=== PATIENT | female | born 1940 | race Hispanic/Latino ===

== ENCOUNTER 2017-02-24 10:42 | Emergency (ER) | payer MEDICARE, BC ==
[2017-02-24] MEDS ORDERED: Ondansetron HCl/PF 4 MG/2 ML Vial ONE (11:23)
[2017-02-24 11:27] LABS: #Basophils 0.1 thou/uL (0.0-0.2); #Eosinphils 0.1 thou/uL (0.0-0.7); #Lymphocytes 1.9 thou/uL (1.20-3.40); #Monocytes 0.5 thou/uL (0.11-0.59); #Neutrophils 5.9 thou/uL (1.40-6.50); %Basophils 0.6 % (0.0-1.0); %Eosinophils 0.7 % (0.0-10.0); %Lymphocytes 22.7 % (21.0-51.0); %Monocytes 5.8 % (0.0-10.0); Mean Platelet Volume 7.3 fL (7.4-10.4); Red Blood Cell (RBC) Count 4.45 mill/uL (4.20-5.40); White Blood Cell (WBC) Count 8.4 thou/uL (4.8-10.8)
[2017-02-24 11:53] LABS: ALT (SGPT) 20 U/L (8-55); AST (SGOT) 16 U/L (5-34); Alkaline Phosphatase 88 U/L (40-150); Anion Gap 13 mmol/L (10-20); BUN (Urea Nitrogen) 20 mg/dL (9.8-20.1); Bilirubin, Total 0.5 mg/dL (0.2-1.2); Calc. Creatinine Clearance 0 mL/min (70-130); Calcium 9.1 mg/dL (7.8-10.44); Carbon Dioxide 24 mmol/L (23-31); Chloride 102 mmol/L (98-107); Estimated GFR-MDRD 60; Globulin 3.7 g/dL (2.4-3.5); Lipase 14 U/L (8-78); Protein, Total 7.7 g/dL (6.0-8.3)
== END 2017-02-24 14:10 | disposition home or self-care (01) ==
LOC: ERS 10:42
DX: K52.9 Noninfective gastroenteritis and colitis, unspecified (principal); E11.9 Type 2 diabetes mellitus without complications; E78.5 Hyperlipidemia, unspecified; I10 Essential (primary) hypertension; J45.909 Unspecified asthma, uncomplicated; Z79.84 Long term (current) use of oral hypoglycemic drugs; Z79.899 Other long term (current) drug therapy
CPT/HCPCS: 36416; 80053; 83690; 85025; 96361; 96372; 96374; J2405

== ENCOUNTER 2017-06-19 13:52 | Outpatient (CLI) | payer MEDICARE, BC ==
--- NOTE | 2017-06-19 17:29 | RAD ---
TWO VIEWS CHEST: 06/19/17 PROVIDED CLINICAL HISTORY: Wheezing. FINDINGS: Comparison is made with the study dated 05/12/15. The cardiac and mediastinal silhouette is within normal limits. There is poor definition to the left posterior costophrenic angle with suggestion of left basilar opacity on the frontal view, suspicious for pneumonia. Lungs appear otherwise clear. No definite pleural fluid or pneumothorax apparent. Dege nerative changes are seen in involving the thoracic spine. Vascular calcification involves the aortic arch. IMPRESSION: Findings suspicious for left basilar air space disease. Correlate with concerns for pneumonia. Follow up recommended. POS: C[facility]
== END 2017-06-19 13:53 | disposition home or self-care (01) ==
LOC: RAD-FRANK 13:52
PROVIDERS: ATTEND Nurse Practitioner Family
DX: J45.901 Unspecified asthma with (acute) exacerbation (principal); R06.2 Wheezing; J06.9 Acute upper respiratory infection, unspecified
CPT/HCPCS: 71046

== ENCOUNTER 2017-07-01 08:13 | Outpatient (CLI) | payer MEDICARE, BC ==
--- NOTE | 2017-07-01 09:22 | RAD ---
TWO VIEWS CHEST: HISTORY: Left lower lobe pneumonia. FINDINGS: P)A and lateral views of the chest are obtained on 07/01/17. Comparison is made to previous exam from 06/19/17. Two views chest demonstrate the lungs to be well aerated. Area of airspace opacity in the left lower lobe has significantly improved in aeration and essentially completely resolved. No evidence of res idual pneumonia or masses seen. No other significant abnormalities noted. IMPRESSION: Improved aeration and resolved left lower lobe pneumonia. POS: C
== END 2017-07-01 08:14 | disposition home or self-care (01) ==
LOC: RAD-FRANK 08:13
PROVIDERS: ATTEND Nurse Practitioner Family
DX: J16.8 Pneumonia due to other specified infectious organisms (principal)
CPT/HCPCS: 71046

== ENCOUNTER 2017-09-01 10:38 | Emergency (ER) | payer MEDICARE, BC ==
[2017-09-01 11:04] LABS: #Basophils 0.1 thou/uL (0.0-0.2); #Eosinphils 0.2 thou/uL (0.0-0.7); #Lymphocytes 2.1 thou/uL (1.20-3.40); #Monocytes 0.4 thou/uL (0.11-0.59); #Neutrophils 2.9 thou/uL (1.40-6.50); %Lymphocytes 37.7 % (21.0-51.0); %Monocytes 6.7 % (0.0-10.0); %Neutrophils 51.6 % (42.0-75.0); Hemoglobin 14.3 g/dL (12.0-16.0); Mean Corpuscular HGB CONC 35.1 g/dL (32.0-36.0); Mean Corpuscular Volume 93.8 fl (81.0-99.0); Mean Platelet Volume 7.3 fL (7.4-10.4); Platelet Count 190 thou/uL (130-400); RBC Distribution Width 11.6 % (11.5-14.5); Red Blood Cell (RBC) Count 4.34 mill/uL (4.20-5.40); White Blood Cell (WBC) Count 5.5 thou/uL (4.8-10.8)
[2017-09-01 11:29] LABS: ALT (SGPT) 9 U/L (8-55); AST (SGOT) 12 U/L (5-34); Albumin 4.3 g/dL (3.4-4.8); Alkaline Phosphatase 84 U/L (40-150); Anion Gap 14 mmol/L (10-20); BUN (Urea Nitrogen) 37 mg/dL (9.8-20.1); Bilirubin, Total 0.6 mg/dL (0.2-1.2); Calc. Creatinine Clearance 0 mL/min (70-130); Calcium 9.7 mg/dL (7.8-10.44); Carbon Dioxide 24 mmol/L (23-31); Chloride 106 mmol/L (98-107); Estimated GFR-MDRD 45; Globulin 3.2 g/dL (2.4-3.5); Glucose 134 mg/dL (83-110); Potassium 3.6 mmol/L (3.5-5.1); Protein, Total 7.5 g/dL (6.0-8.3); Sodium 140 mmol/L (136-145)
== END 2017-09-01 13:10 | disposition home or self-care (01) ==
LOC: ERS 10:38
DX: M79.2 Neuralgia and neuritis, unspecified (principal); E11.9 Type 2 diabetes mellitus without complications; E78.5 Hyperlipidemia, unspecified; I10 Essential (primary) hypertension; J45.909 Unspecified asthma, uncomplicated; M06.9 Rheumatoid arthritis, unspecified; Z79.84 Long term (current) use of oral hypoglycemic drugs; Z79.899 Other long term (current) drug therapy
CPT/HCPCS: 36415; 80053; 85025; 99284

== ENCOUNTER 2017-10-11 18:47 | Emergency (ER) | payer MEDICARE, BC ==
--- NOTE | 2017-10-11 19:51 | RAD ---
THREE VIEWS RIGHT FOOT: 10/11/17 HISTORY: Injury to foot one day ago. Patient now has right foot pain. FINDINGS: The Lisfranc joint is normally aligned. The toes are held in flexion, but no definite fracture is see n. There is no evidence of a dislocation. A plantar calcaneal enthesophyte is seen. There is mild sub cutaneous soft tissue swelling seen at the dorsal aspect of the mid foot. IMPRESSION: Mild subcutaneous soft tissue swelling dorsal aspect of the foot, but no acute osseous abnormality is seen. POS: TELMA
[2017-10-11] MEDS ORDERED: Ketorolac Tromethamine 30 MG/ML VIAL ONE (20:19)
== END 2017-10-11 20:35 | disposition home or self-care (01) ==
LOC: ERS 18:47
DX: S93.401A Sprain of unspecified ligament of right ankle, initial encounter (principal); E11.9 Type 2 diabetes mellitus without complications; E78.5 Hyperlipidemia, unspecified; I10 Essential (primary) hypertension; J45.909 Unspecified asthma, uncomplicated; M06.9 Rheumatoid arthritis, unspecified; Z79.899 Other long term (current) drug therapy; Z79.84 Long term (current) use of oral hypoglycemic drugs; W18.30XA Fall on same level, unspecified, initial encounter
CPT/HCPCS: 96372; J1885

== ENCOUNTER 2017-12-14 18:53 | Observation (INO) | payer MEDICARE, BC ==
[2017-12-14] MEDS ORDERED: Nitroglycerin 0.4 MG TAB (25 Tab Bottle) ONE (19:43)
--- NOTE | 2017-12-14 19:49 | RAD ---
RADIOGRAPH CHEST 1 VIEW: 12/14/17 HISTORY: 77-year-old female with acute chest pain. FINDINGS: There are no air space densities, pulmonary edema, pneumothorax, or cardiomegaly. The lateral costop hrenic angles are sharp. IMPRESSION: No acute cardiopulmonary findings. adair [] POS: PENNY
[2017-12-14] MEDS ORDERED: Acetaminophen 500 MG TAB ONE (20:01)
[2017-12-14 20:05] LABS: #Basophils 0.1 thou/uL (0.0-0.2); #Eosinphils 0.1 thou/uL (0.0-0.7); #Lymphocytes 2.6 thou/uL (1.20-3.40); #Monocytes 0.5 thou/uL (0.11-0.59); #Neutrophils 6.4 thou/uL (1.40-6.50); %Eosinophils 1.2 % (0.0-10.0); %Lymphocytes 26.7 % (21.0-51.0); %Neutrophils 66.1 % (42.0-75.0); Hemoglobin 14.2 g/dL (12.0-16.0); Mean Corpuscular HGB CONC 33.8 g/dL (32.0-36.0); Mean Corpuscular Hemoglobin 32.5 pg (27.0-31.0); Mean Corpuscular Volume 96.2 fL (78.0-98.0); Mean Platelet Volume 7.3 fL (7.4-10.4); Platelet Count 217 thou/uL (130-400); RBC Distribution Width 11.9 % (11.5-14.5); Red Blood Cell (RBC) Count 4.36 mill/uL (4.20-5.40); White Blood Cell (WBC) Count 9.6 thou/uL (4.8-10.8)
[2017-12-14 20:27] LABS: ALT (SGPT) 27 U/L (8-55); AST (SGOT) 15 U/L (5-34); Albumin 4.2 g/dL (3.4-4.8); Alkaline Phosphatase 96 U/L (40-150); Anion Gap 15 mmol/L (10-20); BUN (Urea Nitrogen) 39 mg/dL (9.8-20.1); Bilirubin, Total 0.4 mg/dL (0.2-1.2); Calc. Creatinine Clearance 0 mL/min (70-130); Calcium 9.5 mg/dL (7.8-10.44); Carbon Dioxide 23 mmol/L (23-31); Chloride 104 mmol/L (98-107); Estimated GFR-MDRD 46; Globulin 3.3 g/dL (2.4-3.5); Glucose 136 mg/dL (83-110); Potassium 3.7 mmol/L (3.5-5.1); Protein, Total 7.5 g/dL (6.0-8.3); Sodium 138 mmol/L (136-145)
[2017-12-14 20:29] LABS: CKMB 6.1 ng/mL (0-6.6); Troponin I Less than 0.010 ng/mL (< 0.028)
[2017-12-14] MEDS ORDERED: Acetaminophen 325 MG TAB PO PRN (23:04)
[2017-12-14] MEDS ORDERED: Ondansetron HCl/PF 4 MG/2 ML Vial IVP PRN (23:04)
[2017-12-14 23:33] LABS: Troponin I Less than 0.010 ng/mL (< 0.028)
[2017-12-14 23:58] VITALS: BMI 28.1
--- NOTE | 2017-12-15 00:37 | HP ---
PRIMARY CARE PHYSICIAN: JAYA Gtz CODE STATUS: FULL CODE. TIME OF EVALUATION: 10:20 p.m. CHIEF COMPLAINT: Chest pain. HISTORY OF PRESENT ILLNESS: This is a 77-year-old female patient with past medical history of marion ry artery disease, status post stent placement; diabetes; hyperlipidemia; hypertension; asthma came t o the hospital after having chest pain that started around 7:00 p.m. when she was sitting with no tre ar triggers, no alleviating factors. The pain was reported as moderate, radiating to the left arm. REVIEW OF SYSTEMS: Constitutional: No fever, chills, or generalized weakness. Respiratory: No cou gh, sputum production, shortness of breath. Cardiovascular: The patient has chest pain as described in HPI. No palpitations. Gastrointestinal: No nausea. No vomiting, diarrhea, or abdominal pain. MANAGER OF HUMAN RESOURCES: No dizziness, headache, or feeling lightheaded. Genitourinary: No burning on urination. Ext remities: No leg swelling. All other systems were reviewed and negative except for the findings men tioned above. PAST MEDICAL HISTORY: Mentioned in the HPI. PAST SURGICAL HISTORY: Appendectomy, cholecystectomy, orthopedic surgery, bilateral knee replacement . PSYCHIATRIC HISTORY: No history of suicidal ideation. No history of suicidal attempts. No psych hi story. SOCIAL HISTORY: Lives at home alone. The patient drinks socially. No drugs. No smoking history. FAMILY HISTORY: Mother had heart problems and diabetes. Father had hypertension. KNOWN ALLERGIES: IODINE. REPORTED MEDICATIONS: Amlodipine, metformin, pravastatin, lisinopril, hydrochlorothiazide, pantopraz ole, Advair, albuterol. PHYSICAL EXAMINATION: VITAL SIGNS: On presentation, blood pressure 128/70 with heart rate 88, respiratory rate 18, tempera ture 98.3, pain 6, oxygen saturation 94% on room air. GENERAL APPEARANCE: The patient is alert, oriented, not in acute distress. HEENT: Eyes, normal conjunctivae. Moist oral mucosa. Anicteric. NECK: No JVD. RESPIRATORY: Bilateral air entry. No rales, no wheezing. Symmetric expansion. CARDIOVASCULAR: Normal rate, regular rhythm. No murmurs or gallop. No edema. ABDOMEN: Soft. Normal bowel sounds. MUSCULOSKELETAL: Baseline range of motion and strength. No tenderness. SKIN: Warm and intact. No pallor, no rash, no redness. Peripheral pulses are present. Capillary r efill seems to be intact. NEUROLOGIC: Baseline sensorium. No evidence of any new focal weakness. Baseline speech. Cranial n erves seems to be intact. PSYCHIATRIC: The patient is in good mood. No anxiety. Oriented. Optimal judgment. IMAGING: EKG was reviewed. The patient has normal sinus rhythm at a rate of 83, WA 192, QRS 100, QT corrected 462. This was discussed with the performing physician in ER. Chest x-ray was done. The patient had no acute cardiopulmonary findings. LABORATORY DATA: Labs were reviewed. The patient has a white count of 9.6, hemoglobin 14.2, MCV 96, platelet count 217. Chemistry: Sodium 138, potassium 3.7, chloride 104, carbon dioxide 23, anion g ap 15, BUN 39, creatinine 1.15. The previous creatinine in record was 0.99. GFR 46, glucose 136, ca lcium 9.5. LFTs were normal. Troponins were negative x2. ASSESSMENT AND PLAN: The patient will be placed in the hospital with following medical problems. 1. Chest pain, rule out acute coronary syndrome. Two troponins are negative and EKG unremarkable. We will monitor on tele overnight. If everything is negative, in the morning, we will do stress test . It has been discussed with the patient and family and they agree to have a stress test done. 2. Uncontrolled diabetes. Blood sugar 136. We will reconcile home meds. We will start the patient on a sliding scale for optimal control. 3. Chronic mildly elevated creatinine. We will hydrate. We will monitor. No need for any further intervention at this time. 4. Uncontrolled hypertension with a systolic blood pressure 157 on presentation. We will reconcile home meds, adjust as needed. 5. Deep venous thrombosis prophylaxis.
[2017-12-15 02:05] LABS: Troponin I Less than 0.010 ng/mL (< 0.028)
[2017-12-15 03:50] LABS: #Basophils 0.1 thou/uL (0.0-0.2); #Eosinphils 0.1 thou/uL (0.0-0.7); #Lymphocytes 2.6 thou/uL (1.20-3.40); #Monocytes 0.5 thou/uL (0.11-0.59); #Neutrophils 4.8 thou/uL (1.40-6.50); %Basophils 0.7 % (0.0-1.0); %Eosinophils 1.6 % (0.0-10.0); %Lymphocytes 32.4 % (21.0-51.0); %Monocytes 6.7 % (0.0-10.0); %Neutrophils 58.7 % (42.0-75.0); Mean Corpuscular HGB CONC 33.3 g/dL (32.0-36.0); Mean Corpuscular Hemoglobin 32.6 pg (27.0-31.0); Mean Corpuscular Volume 97.8 fL (78.0-98.0); Mean Platelet Volume 7.9 fL (7.4-10.4); Platelet Count 194 thou/uL (130-400); RBC Distribution Width 11.8 % (11.5-14.5); White Blood Cell (WBC) Count 8.1 thou/uL (4.8-10.8)
[2017-12-15 04:02] LABS: Anion Gap 15 mmol/L (10-20); BUN (Urea Nitrogen) 37 mg/dL (9.8-20.1); Calc. Creatinine Clearance 42 mL/min (70-130); Calcium 9.3 mg/dL (7.8-10.44); Carbon Dioxide 23 mmol/L (23-31); Chloride 105 mmol/L (98-107); Estimated GFR-MDRD 49; Glucose 182 mg/dL (83-110); Potassium 3.7 mmol/L (3.5-5.1); Sodium 139 mmol/L (136-145)
[2017-12-15 07:54] VITALS: TEMP 98
[2017-12-15] MEDS ORDERED: Dextrose 5% in Water 1,000 ML IV PRN (08:23)
[2017-12-15] MEDS ORDERED: Insulin Regular 300 UNITS/3 ML VIAL SC PRN ×2 (08:23)
[2017-12-15] MEDS ORDERED: Dextrose 50% Abboject 50 ML SYRINGE SLOW IVP PRN (08:23)
[2017-12-15] MEDS ORDERED: Enoxaparin Sodium 40 MG/0.4 ML SYRINGE SC SCH (09:00)
[2017-12-15] MEDS ORDERED: Aspirin 325 MG TAB PO SCH (09:00)
[2017-12-15] MEDS ORDERED: Non-Formulary Item 1 EACH (Fluticasone/Salmeterol [Advair Diskus 500/50] 1 INH) IH SCH (09:00)
[2017-12-15] MEDS ORDERED: Regadenoson 0.4 MG/5 ML SYRINGE ONE (10:22)
[2017-12-15 12:46] VITALS: BP 137/60
--- NOTE | 2017-12-15 14:30 | NM ---
CARDIAC SPECT: CLINICAL HISTORY: 77-year-old female with chest pain, coronary artery disease, stent, diabetes, hypercholesterolemia, h ypertension, and asthma. TECHNIQUE: A myocardial perfusion scan was performed using the single isotope one day protocol with technetium-9 9m sestamibi. 9 mCi were injected intravenously for the rest exam followed by 31 mCi for the stress e xam. Pharmacologic stress with Lexiscan was monitored and interpreted by Dr. Shen. FINDINGS: Homogeneous tracer distribution is seen in the myocardial segments on stress and rest images without fixed or reversible defects. GATED SPECT LVEF: 94%. WALL MOTION EXAM: Normal. IMPRESSION: Normal myocardial perfusion scan. POS: PENNY
--- NOTE | 2017-12-15 15:21 | DIS ---
DATE OF DISCHARGE: 12/15/2017 DISCHARGE DISPOSITION: Home. FOLLOWUP: 1. Follow up with the primary care physician, Brianna Lea, in 1 week. 2. Follow up with Gastroenterology, Dr. Lynn, in 1-2 weeks. INPATIENT CONSULTANTS: None. DISCHARGE MEDICATIONS: Protonix 40 mg daily. All other home medications were left, unchanged. The patient was seen and examined on the day of discharge. Denies any new complaints. Chest pain jorgensen s resolved. BRIEF HOSPITAL COURSE: The patient is a 77-year-old female with coronary artery disease, status post stent placement; diabetes mellitus, type 2; hyperlipidemia; who presented to the emergency room with chest discomfort. Please refer to the history and physical by Dr. Justin for further details. The patient was admitted to the hospital with a diagnosis of chest discomfort, rule out acute coronar y syndrome. Serial troponins were negative. Patient underwent a Cardiolite stress test that was neg ative for reversible ischemia. There were no wall motion abnormalities. Her symptoms are probably r elated to gastroesophageal reflux disease versus peptic ulcer disease. She will benefit from outpati ent GI workup. She has been started on Protonix 40 mg daily. Plan of care was discussed with the prosper teran and the family in detail. They stated understanding. FINAL DIAGNOSES: 1. Chest discomfort, acute coronary syndrome ruled out. 2. Coronary artery disease, status post stent placement. 3. Diabetes mellitus, type 2. 4. Hypertension. 5. Hyperlipidemia. 6. Mild persistent asthma. 7. Chronic kidney disease, stage 3. Plan of care was discussed with the patient and the family at the bedside. They stated understanding .
[2017-12-15] MEDS ORDERED: Mometasone/Formoterol 120 PUFF INHALER INH SCH (18:30)
[2017-12-15] MEDS ORDERED: Pravastatin Sodium 40 MG TAB PO SCH (21:00)
[2017-12-15] MEDS ORDERED: Atorvastatin Calcium 20 MG TAB PO SCH (21:00)
== END 2017-12-15 15:27 | disposition home or self-care (01) ==
LOC: ERS 18:53 → 2SW 22:00
PROVIDERS: ADMIT Hospitalist; ATTEND Hospitalist
DX: R07.89 Other chest pain (principal); I25.10 Atherosclerotic heart disease of native coronary artery without angina pectoris; E78.5 Hyperlipidemia, unspecified; I12.9 Hypertensive chronic kidney disease with stage 1 through stage 4 chronic kidney disease, or unspecified chronic kidney disease; E11.22 Type 2 diabetes mellitus with diabetic chronic kidney disease; N18.3 Chronic kidney disease, stage 3 (moderate); J45.30 Mild persistent asthma, uncomplicated; Z79.84 Long term (current) use of oral hypoglycemic drugs; Z79.899 Other long term (current) drug therapy; Z91.041 Radiographic dye allergy status; Z95.5 Presence of coronary angioplasty implant and graft
CPT/HCPCS: 71045; 78452; 80048; 80053; 82553; 82962 ×2; 84484 ×3; 85025 ×2; 93005; 93017; 94760; 96372; 99285; A9500; G0378 ×2; 36415; 36416; A4216; J1650; J2785

== ENCOUNTER 2018-05-10 11:08 | Emergency (ER) | payer MEDICARE, BC ==
[2018-05-10 13:14] LABS: #Basophils 0.1 thou/uL (0.0-0.2); #Eosinphils 0.1 thou/uL (0.0-0.7); #Lymphocytes 2.1 thou/uL (1.20-3.40); #Monocytes 0.4 thou/uL (0.11-0.59); %Eosinophils 1.7 % (0.0-10.0); %Monocytes 5.3 % (0.0-10.0); Hemoglobin 13.8 g/dL (12.0-16.0); Mean Corpuscular HGB CONC 32.5 g/dL (32.0-36.0); Mean Corpuscular Hemoglobin 31.5 pg (27.0-31.0); Mean Corpuscular Volume 96.9 fL (78.0-98.0); Mean Platelet Volume 7.4 fL (7.4-10.4); Platelet Count 211 thou/uL (130-400); RBC Distribution Width 11.4 % (11.5-14.5); Red Blood Cell (RBC) Count 4.38 mill/uL (4.20-5.40); White Blood Cell (WBC) Count 7.7 thou/uL (4.8-10.8)
[2018-05-10 13:37] LABS: ALT (SGPT) 8 U/L (8-55); AST (SGOT) 11 U/L (5-34); Albumin 3.9 g/dL (3.4-4.8); Alkaline Phosphatase 74 U/L (40-150); Anion Gap 12 mmol/L (10-20); BUN (Urea Nitrogen) 26 mg/dL (9.8-20.1); Bilirubin, Total 0.3 mg/dL (0.2-1.2); Calc. Creatinine Clearance 0 mL/min (70-130); Calcium 9.5 mg/dL (7.8-10.44); Carbon Dioxide 26 mmol/L (23-31); Chloride 107 mmol/L (98-107); Estimated GFR-MDRD 56; Globulin 3.1 g/dL (2.4-3.5); Glucose 97 mg/dL (83-110); Potassium 4.2 mmol/L (3.5-5.1); Sodium 141 mmol/L (136-145)
[2018-05-10 13:41] LABS: Bilirubin Negative (Negative); Blood, Urine Trace (Negative); Clarity CLEAR (Clear); Glucose, Urine (Dipstick) Negative (Negative); Leukocyte Negative (Negative); Nitrite Negative (Negative); Protein, Urine (Dipstick) Negative (Neg-Trace); Specific Gravity, Urine 1.019 (1.002-1.036); pH, Urine 7.5 (5.0-9.0)
--- NOTE | 2018-05-10 13:43 | CT ---
CT LUMBAR SPINE WITHOUT CONTRAST: HISTORY: Low back pain. Symptoms x 1 week. COMPARISON: 07/28/2015. TECHNIQUE: A lumbar spine CT is performed without contrast administration. Reformatted images are submitted for interpretation. FINDINGS: Visualized lung parenchyma is unremarkable. Visualized solid organs are unremarkable. No retroperit bansal mass, lymphadenopathy, or hematoma. Symmetric attenuation of the psoas muscles. Visualized aorta is unremarkable. There are 5 lumbar-type vertebral bodies. Lumbar spine vertebral body height is maintained. There i s no fracture. There is anterolisthesis of L4 upon L5, measuring 5.5 mm. Vacuum-disk phenomenon at L2-L3, L3-L4. Limited evaluation of the contents of the central spinal canal and neural foramen due to technique. T11-T12, T12-L1: No high-grade central canal stenosis or high-grade foraminal narrowing. L1-L2: Calcification of the posterior margin of the disk. Mild central canal stenosis. Neural fora padmini are patent. L2-L3: Vacuum-disk phenomenon with mild loss of disk space height. Generalized disk bulge, ligament um flavum thickening, and facet hypertrophy result in mild central canal stenosis. Moderate right an d left foraminal narrowing. L3-L4: Broad-based disk bulge, ligamentum flavum thickening, and facet hypertrophy result in moderat e central canal stenosis. Moderate right and mild to moderate left foraminal narrowing. L4-L5: Broad-based disk bulge, ligamentum flavum thickening, and facet hypertrophy result in moderat e central canal stenosis. Mild bilateral foraminal narrowing. L5-S1: No high-grade central canal stenosis. Mild bilateral foraminal narrowing. IMPRESSION: 1. Degenerative change of the lumbar spine as above. 2. No evidence of fracture. POS: [facility]
[2018-05-10 13:44] LABS: Bacteria/HPF None Seen HPF (None Seen); Hyaline Casts/LPF 0-3 HYALINE CAST LPF (0-3 Hyaline); Pathc Cast-AUWi Flag 0.72 (0-2.49); Squamous Epithelial 0-3 HPF (0-3); WBC/HPF 0-3 HPF (0-3)
[2018-05-10] MEDS ORDERED: Dexamethasone 4 mg/ml Vial ONE (14:56)
== END 2018-05-10 15:00 | disposition home or self-care (01) ==
LOC: ERS 11:08
DX: M51.36 Other intervertebral disc degeneration, lumbar region (principal); E11.9 Type 2 diabetes mellitus without complications; E78.5 Hyperlipidemia, unspecified; I10 Essential (primary) hypertension; J45.909 Unspecified asthma, uncomplicated; M06.9 Rheumatoid arthritis, unspecified
CPT/HCPCS: 36415; 72131; 80053; 81003; 81015; 85025; J1100

== ENCOUNTER 2018-06-18 11:08 | Outpatient (CLI) | payer MEDICARE, BC ==
--- NOTE | 2018-06-18 11:20 | RAD ---
FXR Chest Pa Lat STANDARD History: [Pneumonia] Comparison: Chest radiograph November 2017 Findings: Heart size mildly enlarged. Lungs are mildly hyperinflated. No pneumothorax or effusion. Quadrant surgical clips. No acute osseous abnormality. Impression: Similar exam without acute intrathoracic abnormality.
== END 2018-06-18 11:09 | disposition home or self-care (01) ==
LOC: RAD-FRANK 11:08
PROVIDERS: ATTEND Nurse Practitioner Family
DX: J45.909 Unspecified asthma, uncomplicated (principal); E11.65 Type 2 diabetes mellitus with hyperglycemia; Z78.0 Asymptomatic menopausal state; I10 Essential (primary) hypertension; E78.5 Hyperlipidemia, unspecified; K21.9 Gastro-esophageal reflux disease without esophagitis; M85.89 Other specified disorders of bone density and structure, multiple sites; H91.93 Unspecified hearing loss, bilateral; R53.1 Weakness; Z96.653 Presence of artificial knee joint, bilateral; Z87.01 Personal history of pneumonia (recurrent)
CPT/HCPCS: 36415; 71046; 80053; 81001; 82043; 83036; 85025; 87077; 87086; 87186

== ENCOUNTER 2018-07-29 09:50 | Outpatient (CLI) | payer MEDICARE, BC ==
[~2018-07-29 09:50] MED LIST: Iopamidol 370 76% 100 ML VIAL ONE
--- NOTE | 2018-07-29 11:43 | CT ---
EXAM: CT Abdomen Pelvis W WO con PROVIDED CLINICAL HISTORY: Recurrent urinary tract infections COMPARISON: Noncontrast CT abdomen and pelvis in 2008. FINDINGS: There is mild dependent atelectasis bilaterally. The lung bases are otherwise clear. Vascular calcifications are seen in the abdominal aorta and involving the iliac arteries. Post cholecystectomy changes are noted. There is mild intrahepatic and extrahepatic biliary duct dila tation likely related to reservoir effect from prior cholecystectomy. No renal or ureteral calculi are seen bilaterally, and there is no hydronephrosis. Tiny subcentimeter too small to characterize hypodense lesions are seen in each kidney. There is an approximately 11 mm hypodense lesion seen in the midportion left kidney which is difficult to accurately characterize due to small size but statistically likely represents a cyst. Delayed imaging demonstrates no obvious filling defect within the renal collecting systems or either ureter bilaterally. The liver, spleen, pancreas, bilateral adrenal glands, and urinary bladder demonstrate a normal CT ap pearance. The uterus and adnexal structures demonstrate grossly normal appearance for the patient's age. Unopacified loops of small bowel are normal in caliber. There are fat-containing ventral abdominal wall hernias seen in a supraumbilical location. Degenerative changes are noted in the spine. IMPRESSION: 1. Tiny subcentimeter too small to characterize hypodense lesions in each kidney with an 11 mm low-de nsity lesion midportion left kidney also difficult to characterize but statistically likely represents a small cyst. 2. No obvious enhancing renal mass is seen. There is no renal or ureteral calculus identified. 3. Postcholecystectomy changes. 4. Fat-containing ventral abdominal wall hernias.
== END 2018-07-29 09:51 | disposition home or self-care (01) ==
LOC: CT 09:50
PROVIDERS: ATTEND Urology
DX: N39.0 Urinary tract infection, site not specified (principal); R31.29 Other microscopic hematuria; K43.9 Ventral hernia without obstruction or gangrene; N28.9 Disorder of kidney and ureter, unspecified; Z98.890 Other specified postprocedural states
CPT/HCPCS: 74178; 82565; Q9967

== ENCOUNTER 2019-08-05 13:04 | Outpatient (CLI) | payer MEDICARE, BC ==
--- NOTE | 2019-08-05 13:47 | BD ---
Exam: DEXA Bone Density 08/05/19 HISTORY: 79-year-old female with screening for postmenopausal osteoporosis. FINDINGS: Lumbar Spine: BMD (g/cm2) T-SCORE Z-SCORE L1 0.855 -1.2 1.2 L2 0.988 -0.4 2.3 L3 1.037 -0.4 2.4 L4 1.104 0.4 3.3 L1-L4 0.998 -0.4 2.3 Femoral Neck: 0.566 -2.5 -0.3 Total Femur: 0.745 -1.6 0.5 Impression: Osteoporosis. POS: OBEYA
== END 2019-08-05 13:05 | disposition home or self-care (01) ==
LOC: BICMAMMO 13:04
PROVIDERS: ATTEND Nurse Practitioner Family
DX: Z13.820 Encounter for screening for osteoporosis (principal); E55.9 Vitamin D deficiency, unspecified; M81.0 Age-related osteoporosis without current pathological fracture; Z87.39 Personal history of other diseases of the musculoskeletal system and connective tissue
CPT/HCPCS: 77080

== ENCOUNTER 2020-08-16 09:02 | Outpatient (CLI) | payer MEDICARE, BC | END 2020-08-16 09:03 | disposition home or self-care (01) | LOC: RAD-FRANK 09:02 | PROVIDERS: ATTEND Nurse Practitioner Family | DX: R05 Cough (principal) | CPT/HCPCS: 71046 ==

== ENCOUNTER 2021-11-06 09:19 | Outpatient (CLI) | payer MEDICARE, BC | END 2021-11-06 09:20 | disposition home or self-care (01) | LOC: BICMAMMO 09:19 | PROVIDERS: ATTEND Nurse Practitioner Family | DX: Z12.31 Encounter for screening mammogram for malignant neoplasm of breast (principal) | CPT/HCPCS: 77063; 77067 ==

== ENCOUNTER 2022-03-27 16:21 | Emergency (ER) | payer MEDICARE, BC | END 2022-03-27 18:03 | disposition left against medical advice (07) | LOC: ERS 16:21 | DX: Z53.21 Procedure and treatment not carried out due to patient leaving prior to being seen by health care provider (principal) ==

== ENCOUNTER 2022-05-21 09:29 | Outpatient (CLI) | payer MEDICARE, BC | END 2022-05-21 09:30 | disposition home or self-care (01) | LOC: BICRAD 09:29 | PROVIDERS: ATTEND Nurse Practitioner Family | DX: R09.89 Other specified symptoms and signs involving the circulatory and respiratory systems (principal) | CPT/HCPCS: 36415; 71046; 80053; 83880; 85025; 85379 ==

== ENCOUNTER 2022-05-21 17:03 | Emergency (ER) | payer MEDICARE, BC ==
[~2022-05-21 17:03] MED LIST changes: -Iopamidol 370 76% 100 ML VIAL ONE; +Iopamidol-370 76% 500 ML 1 ML ONE
[2022-05-21] MEDS ORDERED: Famotidine/PF 20 mg/2ml Vial ONE (19:37)
[2022-05-21] MEDS ORDERED: diphenhydrAMINE 50 MG/ML VIAL ONE (19:37)
[2022-05-21] MEDS ORDERED: methylPREDNISolone Sod Succ 40 MG VIAL ONE (19:37)
[2022-05-21 20:05] LABS: #Eosinphils 0.1 thou/uL (0.0-0.7); #Lymphocytes 0.8 thou/uL (1.20-3.40); #Monocytes 0.4 thou/uL (0.11-0.59); #Neutrophils 8.7 thou/uL (1.40-6.50); %Eosinophils 0.5 % (0.0-10.0); %Lymphocytes 8.1 % (21.0-51.0); %Monocytes 3.5 % (0.0-10.0); %Neutrophils 87.9 % (42.0-75.0); Hemoglobin 14.4 g/dL (12.0-16.0); Mean Corpuscular HGB CONC 33.2 g/dL (32.0-36.0); Mean Corpuscular Hemoglobin 32.5 pg (27.0-31.0); Mean Corpuscular Volume 97.9 fl (78.0-98.0); Mean Platelet Volume 7.3 fL (7.4-10.4); Platelet Count 265 10x3/uL (130-400); Red Blood Cell (RBC) Count 4.45 mill/uL (4.20-5.40); White Blood Cell (WBC) Count 9.9 10x3/uL (4.8-10.8)
[2022-05-21 20:27] LABS: ALT (SGPT) 8 U/L (8-55); AST (SGOT) 12 U/L (5-34); Alkaline Phosphatase 64 U/L (40-110); Anion Gap 13 mmol/L (10-20); BUN (Urea Nitrogen) 15 mg/dL (9.8-20.1); Bilirubin, Total 0.5 mg/dL (0.2-1.2); Calc. Creatinine Clearance 0 mL/min (70-130); Calcium 9.3 mg/dL (7.8-10.44); Carbon Dioxide 24 mmol/L (23-31); Chloride 105 mmol/L (98-107); Estimated GFR 69; Globulin 3.8 g/dL (2.4-3.5); Glucose 135 mg/dL (83-110); Protein, Total 7.8 g/dL (5.8-8.1); Sodium 138 mmol/L (136-145)
== END 2022-05-21 22:59 | disposition home or self-care (01) ==
LOC: ERS 17:03
DX: J18.0 Bronchopneumonia, unspecified organism (principal); I10 Essential (primary) hypertension; E11.9 Type 2 diabetes mellitus without complications
CPT/HCPCS: 36415; 71046; 71275; 80053; 83880; 85025; 85379; 96374; 96375; J1200; J2920; Q9967; S0028

== ENCOUNTER 2023-04-29 09:41 | Outpatient (CLI) | payer MEDICARE, BC | END 2023-04-29 09:42 | disposition home or self-care (01) | LOC: BICRAD 09:41 | PROVIDERS: ATTEND Nurse Practitioner Family | DX: M54.41 Lumbago with sciatica, right side (principal); M54.42 Lumbago with sciatica, left side; G89.29 Other chronic pain; M47.816 Spondylosis without myelopathy or radiculopathy, lumbar region | CPT/HCPCS: 72110 ==